=== PATIENT | male | born 1940 | race Caucasian/White ===

== ENCOUNTER 2016-04-08 11:35 | Outpatient (CLI) | payer MEDICARE | END 2016-04-08 11:36 | disposition home or self-care (01) | LOC: MADLAB 11:35 | PROVIDERS: ATTEND Family Medicine | DX: N40.1 Benign prostatic hyperplasia with lower urinary tract symptoms (principal) | CPT/HCPCS: 36415; 84153 ==

== ENCOUNTER 2016-04-27 12:28 | Outpatient (CLI) | payer MEDICARE ==
[2016-04-27 13:11] LABS: Anion Gap 15 mmol/L (10-20); BUN (Urea Nitrogen) 40 mg/dL (8.4-25.7); Calc. Creatinine Clearance 0 mL/min (70-130); Calcium 9.5 mg/dL (7.8-10.44); Carbon Dioxide 32 mmol/L (23-31); Chloride 98 mmol/L (98-107); Estimated GFR-MDRD 48; Glucose 98 mg/dL (83-110); Sodium 141 mmol/L (136-145)
== END 2016-04-27 12:29 | disposition home or self-care (01) ==
LOC: MADLAB 12:28
PROVIDERS: ATTEND Internal Medicine Cardiovascular Disease
DX: I48.1 Persistent atrial fibrillation (principal)
CPT/HCPCS: 36415; 80048; 83880

== ENCOUNTER 2016-07-19 10:43 | Outpatient (CLI) | payer MEDICARE ==
[2016-07-19 11:36] LABS: ALT (SGPT) 22 U/L (0-55); AST (SGOT) 30 U/L (5-34); Albumin 3.9 g/dL (3.4-4.8); Alkaline Phosphatase 91 U/L (40-150); Anion Gap 12 mmol/L (10-20); BUN (Urea Nitrogen) 29 mg/dL (8.4-25.7); Bilirubin, Total 1.1 mg/dL (0.2-1.2); Calc. Creatinine Clearance 0 mL/min (70-130); Calcium 9.7 mg/dL (7.8-10.44); Carbon Dioxide 31 mmol/L (23-31); Cardiac Risk 2.5 (Less than 4.5); Chloride 103 mmol/L (98-107); Cholesterol 119 mg/dL (< 200 Desired); Estimated GFR-MDRD 66; Globulin 3.1 g/dL (2.4-3.5); Glucose 99 mg/dL (83-110); HDL Cholesterol 47 mg/dL (>60 Neg Risk); LDL Cholesterol, Calculated 63 mg/dL; Potassium 4.2 mmol/L (3.5-5.1); Sodium 142 mmol/L (136-145); Triglycerides 44 mg/dL (Less than 150)
[2016-07-19 12:19] LABS: Band 6 % (5-11); Eosinophils 3 % (0-10); Hemoglobin 12.1 g/dL (14.0-18.0); Lymphocytes 19 % (21-51); MDiff Complete? YES; Mean Corpuscular HGB CONC 32.1 g/dL (32.0-36.0); Mean Corpuscular Hemoglobin 30.2 pg (27.0-31.0); Mean Corpuscular Volume 94.1 fl (80.0-94.0); Mean Platelet Volume 7.9 fL (7.4-10.4); Monocytes 12 % (0-10); Neutrophil 60 % (42-75); Platelet Count 124 thou/uL (130-400); RBC Distribution Width 14.5 % (11.5-14.5); Red Blood Cell (RBC) Count 3.97 mill/uL (4.70-6.10)
[2016-07-19 13:25] LABS: Bilirubin Negative (Negative); Blood, Urine Negative (Negative); Clarity Clear (Clear); Glucose, Urine (Dipstick) Negative (Negative); Leukocyte Negative (Negative); Nitrite Negative (Negative); Protein, Urine (Dipstick) 100 mg/dL (Neg-Trace); Urobilinogen 0.2 mg/dL (0.2-1.0); pH, Urine 6.5 (5.0-9.0)
[2016-07-19 13:35] LABS: White Blood Cell (WBC) Count 3.9 thou/uL (4.8-10.8)
== END 2016-07-19 10:44 | disposition home or self-care (01) ==
LOC: MADLAB 10:43
PROVIDERS: ATTEND Family Medicine
DX: E78.5 Hyperlipidemia, unspecified (principal); I10 Essential (primary) hypertension; R63.4 Abnormal weight loss; I48.91 Unspecified atrial fibrillation
CPT/HCPCS: 36415; 80053; 80061; 81003; 84443; 85025

== ENCOUNTER 2016-07-25 13:58 | Outpatient (CLI) | payer MEDICARE ==
[2016-07-25 14:25] LABS: POC Occult Blood Neg QC Acceptable (Acceptable); POC Occult Blood Pos QC Acceptable (Acceptable)
[2016-07-25 14:26] LABS: POC Occult Blood Neg QC Acceptable (Acceptable); POC Occult Blood Pos QC Acceptable (Acceptable)
== END 2016-07-25 13:59 | disposition home or self-care (01) ==
LOC: MADLAB 13:58
PROVIDERS: ATTEND Family Medicine
DX: E78.5 Hyperlipidemia, unspecified (principal); I10 Essential (primary) hypertension; I48.91 Unspecified atrial fibrillation; R63.4 Abnormal weight loss

== ENCOUNTER 2016-08-01 13:30 | Outpatient (CLI) | payer MEDICARE ==
[2016-08-01 14:40] LABS: Anisocytosis SLIGHT = 6-15 cells (100X) (0-5/hpf); Band 1 % (5-11); Eosinophils 2 % (0-10); Hemoglobin 12.3 g/dL (14.0-18.0); Hypochromia SLIGHT = 6-15 cells (100X) (0-5/hpf); Lymphocytes 19 % (21-51); MDiff Complete? YES; Mean Corpuscular HGB CONC 32.4 g/dL (32.0-36.0); Mean Corpuscular Hemoglobin 31.1 pg (27.0-31.0); Mean Corpuscular Volume 95.8 fl (80.0-94.0); Mean Platelet Volume 7.7 fL (7.4-10.4); Monocytes 5 % (0-10); Neutrophil 72 % (42-75); Ovalocytes SLIGHT = 2-5 cells (100X) (0-1/hpf); PLT Morphology Comment Appears Decreased; Platelet Count 114 thou/uL (130-400); RBC Distribution Width 14.9 % (11.5-14.5); Red Blood Cell (RBC) Count 3.95 mill/uL (4.70-6.10); White Blood Cell (WBC) Count 4.2 thou/uL (4.8-10.8)
--- NOTE | 2016-08-01 15:54 | RAD ---
PA AND LATERAL CHEST: Indication: Chronic cough for a couple of years. Comparison: Single view of the chest, 07-17-02. FINDINGS: There is a moderate sized right pleural effusion. There is moderate cardiomegaly. There is mild pulm onary vascular congestion. Left lung is clear. There is a multi-lead pacemaker overlying the left ch est wall. There is midline sternotomy changes. There is multi-level spondylosis. IMPRESSION: 1. Moderate right pleural effusion. 2. Moderate cardiomegaly and mild pulmonary vascular congestion. POS: THELMA
[2016-08-02 17:07] LABS: Iron 52 ug/dL (65-175); Iron Binding Capacity, Total 308 mcg/dL (261-462)
[2016-08-02 17:34] LABS: Folate (Folic Acid) 16.7 ng/mL (7.0-31.4)
== END 2016-08-01 13:31 | disposition home or self-care (01) ==
LOC: MADLAB 13:30
PROVIDERS: ATTEND Family Medicine
DX: R05 Cough (principal); D64.9 Anemia, unspecified; J90 Pleural effusion, not elsewhere classified; I51.7 Cardiomegaly
CPT/HCPCS: 36415; 71020; 82607; 82728; 82746; 83540; 83550; 85007; 85027; 85060

== ENCOUNTER 2016-12-08 10:38 | Outpatient (CLI) | payer MEDICARE ==
[2016-12-08 11:15] LABS: Anion Gap 7 mmol/L (10-20); BUN (Urea Nitrogen) 25 mg/dL (8.4-25.7); Calc. Creatinine Clearance 0 mL/min (70-130); Calcium 9.5 mg/dL (7.8-10.44); Carbon Dioxide 35 mmol/L (23-31); Chloride 101 mmol/L (98-107); Estimated GFR-MDRD 65; Glucose 93 mg/dL (83-110); Potassium 4.8 mmol/L (3.5-5.1); Sodium 138 mmol/L (136-145)
== END 2016-12-08 10:39 | disposition home or self-care (01) ==
LOC: MADLAB 10:38
PROVIDERS: ATTEND Family Medicine
DX: N18.3 Chronic kidney disease, stage 3 (moderate) (principal); N40.0 Benign prostatic hyperplasia without lower urinary tract symptoms
CPT/HCPCS: 36415; 80048

== ENCOUNTER 2017-01-10 15:19 | Outpatient (CLI) | payer MEDICARE ==
--- NOTE | 2017-01-10 17:40 | RAD ---
FRONTAL AND LATERAL IMAGING OF THE CHEST 01/10/17 COMPARISON: 08/01/16 HISTORY: Cough. FINDINGS: There is no discrete pneumothorax noted. There is a multilead transvenous pacing device present. Mid line sternotomy wires are present. There is a moderate/large sized right pleural effusion with near complete opacification of the right middle and right lower lobe. The right pleural effusion appears to have increased slightly in size when compared to the prior exam. No left pleural effusion seen. IMPRESSION: Moderate/large pleural effusion on the right, slightly increased in size when compared to the prior exam. This pleural effusion could be related to infectious pneumonitis, aspiration or underlying mas s lesion. Clinical correlation is essential. POS: THELMAH
== END 2017-01-10 15:20 | disposition home or self-care (01) ==
LOC: MADRAD 15:19
PROVIDERS: ATTEND Nurse Practitioner Family
DX: R05 Cough (principal); N63.0 Unspecified lump in unspecified breast; R22.40 Localized swelling, mass and lump, unspecified lower limb; J90 Pleural effusion, not elsewhere classified
CPT/HCPCS: 71020

== ENCOUNTER 2017-01-16 12:16 | Outpatient (CLI) | payer MEDICARE ==
--- NOTE | 2017-01-16 15:52 | ULT ---
SOFT TISSUE ULTRASOUND: History: 76-year-old male with palpable lump on right thigh laterally. This palpable finding is evaluated wit h ultrasound. FINDINGS: There is a mixed slightly hyperechoic and hypoechoic oval solid appearing mass which appears to be w ithin the musculature of the right thigh measuring approximately 0.8 x 1.8 x 2.5 cm in size. The is not a cyst or fluid collection. IMPRESSION: Solid mixed echogenic, including hypoechoic and somewhat hyperechoic findings measuring 0.8 x 1.8 x 2.5 cm. Possibilities include that of an organized hematoma versus some type of neoplastic mass. Fol low up MRI with and without contrast is suggested for further evaluation of this mass. POS: ALICE
== END 2017-01-16 12:17 | disposition home or self-care (01) ==
LOC: MADULT 12:16
PROVIDERS: ATTEND Family Medicine
DX: R22.40 Localized swelling, mass and lump, unspecified lower limb (principal); R05 Cough; N63.0 Unspecified lump in unspecified breast
CPT/HCPCS: 76999